=== PATIENT | female | born 1985 | race Caucasian/White ===

== ENCOUNTER 2023-07-19 18:00 | Inpatient (IN) | payer OTHER ==
[2023-07-19 20:22] VITALS: BMI 35.2
[2023-07-19] MEDS ORDERED: Promethazine HCl 25 MG/ML VIAL IM PRN (20:52)
[2023-07-19] MEDS ORDERED: Ondansetron PF 4 MG/2 ML Vial IVP PRN (20:52)
[2023-07-19] MEDS ORDERED: hydrALAZINE 20 MG/ML VIAL SLOW IVP PRN (20:52)
[2023-07-19] MEDS ORDERED: Lidocaine 1% (PF) 30 ML VIAL SC PRN (20:52)
[2023-07-19] MEDS ORDERED: Ibuprofen 800 MG TAB PO PRN (20:53)
[2023-07-19] MEDS ORDERED: Docusate 100 MG CAP PO PRN (20:53)
[2023-07-19] MEDS ORDERED: Carboprost 250 MCG/ML AMP IM PRN (20:53)
[2023-07-19] MEDS ORDERED: Acetaminophen 500 MG TAB PO PRN (20:53)
[2023-07-19] MEDS ORDERED: Tranexamic Acid 1,000 MG/10 ML VIAL IVP PRN (20:53)
[2023-07-19] MEDS ORDERED: Misoprostol 200 MCG TAB PR PRN (20:53)
[2023-07-19] MEDS ORDERED: Methylergonovine 0.2 MG/ML VIAL IM PRN (20:53)
[2023-07-19] MEDS ORDERED: Oxytocin 30 units/NS 500 ML 500 ML IV SCH ×2 (21:00)
[2023-07-19] MEDS ORDERED: Lactated Ringer's 1,000 ML IV SCH (21:00)
[2023-07-19 21:28] LABS: Hematocrit 32.2 % (34.9-44.5); Hemoglobin 10.5 g/dL (12.0-15.5); Mean Corpuscular HGB CONC 32.6 g/dL (32.0-36.0); Mean Corpuscular Hemoglobin 26.6 pg (27.0-33.0); Mean Corpuscular Volume 81.7 fl (81.6-98.3); Mean Platelet Volume 10.2 fl (7.4-10.4); Platelet Count 323 10x3/uL (150-450); RBC Distribution Width 18.9 % (11.5-14.5); Red Blood Cell (RBC) Count 3.94 10x6/uL (3.90-5.03); White Blood Cell (WBC) Count 8.5 10x3/uL (3.5-10.5)
[2023-07-19] MEDS: metFORMIN 500 MG TAB PO SCH (22:18)
[2023-07-19] MEDS: Pantoprazole DR 40 MG TAB PO SCH (22:22)
[2023-07-19] MEDS: Misoprostol 100 MCG TAB VAG SCH (22:24)
[2023-07-19 22:30] LABS: ALT (SGPT) 14 U/L (8-55); AST (SGOT) 16 U/L (5-34); Albumin 2.5 g/dL (3.5-5.0); Alkaline Phosphatase 211 U/L (40-110); Anion Gap 14 mmol/L (10-20); BUN (Urea Nitrogen) 9 mg/dL (7.0-18.7); Bilirubin, Total Less than 0.2 mg/dL (0.2-1.2); Calc. Creatinine Clearance 187 mL/min (70-130); Calcium 8.8 mg/dL (7.8-10.44); Carbon Dioxide 19 mmol/L (22-29); Chloride 106 mmol/L (98-107); Estimated GFR 117; Globulin 3.9 g/dL (2.4-3.5); Glucose 95 mg/dL (70-105); Potassium 3.7 mmol/L (3.5-5.1); Protein, Total 6.4 g/dL (6.0-8.3); Sodium 135 mmol/L (136-145)
[2023-07-19] MEDS ORDERED: metFORMIN 500 MG TAB PO SCH (22:45)
[2023-07-19 22:58] LABS: Syphilis Antibody Nonreactive (Nonreactive); Syphilis Antibody Index 0.09 S/CO (<1.00 Non-Reactive)
[2023-07-19 23:04] LABS: HBsAg Index 0.21 S/CO (0-0.99); Hep B Surf Ag - L&D Non-Reactive S/CO (NonReactive)
[2023-07-19 23:12] LABS: Creatinine, Urine 94.37 mg/dL (47-110)
[2023-07-20] MEDS ORDERED: Famotidine 20 MG TAB PO PRN (00:15)
[2023-07-20] MEDS: fentaNYL/Ropivacaine Epidural 100 ML ONE (03:13)
[2023-07-20] MEDS: Oxytocin 30 units/NS 500 ML 500 ML IV SCH (04:18)
[2023-07-20] MEDS ORDERED: ePHEDrine Sulfate 50 MG/10 ML VIAL SLOW IVP PRN (04:26)
[2023-07-20] MEDS ORDERED: Ondansetron PF 4 MG/2 ML Vial IVP PRN (04:26)
[2023-07-20] MEDS ORDERED: Lactated Ringer's 500 ML IV PRN (04:26)
[2023-07-20] MEDS ORDERED: Naloxone HCl 0.4 mg/ml Vial IVP PRN ×2 (04:26)
[2023-07-20] MEDS ORDERED: Moisturizing Cream (Eucerin) 113 GM JAR TOP PRN (04:26)
[2023-07-20] MEDS ORDERED: Acetaminophen 325 MG TAB PO PRN (04:26)
[2023-07-20] MEDS ORDERED: Promethazine HCl 25 MG/ML VIAL IM PRN (04:26)
[2023-07-20] MEDS ORDERED: diphenhydrAMINE 50 MG/ML VIAL IVP PRN (04:26)
[2023-07-20] MEDS ORDERED: fentaNYL 2 mcg/Ropivacaine 0.2% Epidural 100 ML CADD EPIDURAL SCH (04:30)
[2023-07-20] MEDS ORDERED: Communication Order-Pharmacy FS SCH (04:30)
[2023-07-20] MEDS ORDERED: metFORMIN 500 MG TAB PO SCH ×2 (08:00)
[2023-07-20] MEDS ORDERED: Ferrous Sulfate 325 MG TAB PO SCH (09:00)
[2023-07-20] MEDS ORDERED: Prenatal Vitamin 1 TAB PO SCH (09:00)
[2023-07-20] MEDS ORDERED: Methylergonovine 0.2 MG/ML VIAL IM PRN (10:24)
[2023-07-20] MEDS ORDERED: diphenhydrAMINE 25 MG CAP PO PRN (10:24)
[2023-07-20] MEDS ORDERED: hydrALAZINE 20 MG/ML VIAL SLOW IVP PRN (10:24)
[2023-07-20] MEDS ORDERED: Benzocaine-Menthol 82.5 ML CAN TOP PRN (10:24)
[2023-07-20] MEDS ORDERED: Lanolin Ointment 7 GM TUBE TOP PRN (10:24)
[2023-07-20] MEDS ORDERED: Preparation H Ointment 28 GM TUBE PR PRN (10:24)
[2023-07-20] MEDS ORDERED: Milk Of Magnesia 30 ML UDCUP PO PRN (10:24)
[2023-07-20] MEDS ORDERED: Bisacodyl 10 MG SUPP PR PRN (10:24)
[2023-07-20] MEDS: Docusate 100 MG CAP PO SCH ×2 (11:36→22:17)
[2023-07-20] MEDS: Boostrix 0.5 ML (Tdap) VIAL (>/=7 yrs of age) IM ONE (11:36)
[2023-07-20] MEDS: Acetaminophen 500 MG TAB PO SCH (11:36)
[2023-07-20] MEDS: Ferrous Sulfate 325 MG TAB PO SCH ×2 (11:36→15:29)
[2023-07-20] MEDS: Prenatal Vitamin 1 TAB PO SCH (11:37)
[2023-07-20] MEDS: Ibuprofen 800 MG TAB PO SCH (14:09)
[2023-07-21] MEDS ORDERED: Bupivacaine 0.25% HCL 30 ML VIAL ONE (09:00)
[2023-07-21] MEDS: Prenatal Vitamin 1 TAB PO SCH (09:20)
[2023-07-21 09:44] VITALS: BP 116/76; TEMP 97.9
[2023-07-21] MEDS: HYDROcodone/Acetaminophen 5/325 mg Tablet PO PRN (12:09)
== END 2023-07-21 12:45 | disposition home or self-care (01) | DRG 807 ==
LOC: CSHLD 18:11 → CSHPP 07-20 10:02
PROVIDERS: ADMIT Obstetrics & Gynecology; ATTEND Obstetrics & Gynecology
PROC: 10E0XZZ Delivery of Products of Conception, External Approach (ICD-10-PCS; principal; 2023-07-20)
DX: O99.214 Obesity complicating childbirth (principal); Z37.0 Single live birth; O13.4 Gestational [pregnancy-induced] hypertension without significant proteinuria, complicating childbirth; O24.425 Gestational diabetes mellitus in childbirth, controlled by oral hypoglycemic drugs; O99.62 Diseases of the digestive system complicating childbirth; Z3A.39 39 weeks gestation of pregnancy; K21.9 Gastro-esophageal reflux disease without esophagitis; O99.02 Anemia complicating childbirth; Z79.84 Long term (current) use of oral hypoglycemic drugs; Z79.899 Other long term (current) drug therapy; D50.9 Iron deficiency anemia, unspecified
CPT/HCPCS: 36416; 51702; 80053; 82570; 84156; 85027; 86780; 86850; 86900; 86901; 87340; J0665; J2590